=== PATIENT | female | born 2000 | race Caucasian/White ===

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

== ENCOUNTER 2022-09-23 02:40 | Emergency (ER) | payer BC ==
[~2022-09-23] VITALS: Ht 165.1 cm; Wt 72.9 kg
[2022-09-23 02:41] VITALS: BP 126/70; TEMP 99; O2SAT 100
[2022-09-23 03:09] LABS: APPEARANCE, URINE HAZY (CLEAR); BACTERIA, URINE AUTO 1+ (NEGATIVE); BILIRUBIN, URINE AUTO NEGATIVE (NEGATIVE); BLOOD, URINE BLOOD 3+ (NEGATIVE); COLOR, URINE AMBER (YELLOW); GLUCOSE, URINE (UA) AUTO NEGATIVE (NEGATIVE); KETONE, URINE AUTO NEGATIVE (NEGATIVE); LEUKOCYTE ESTERASE, URINE AUTO 3+ (NEGATIVE); MUCUS, URINE SMALL (NEGATIVE); NITRITE, URINE AUTO NEGATIVE (NEGATIVE); PROTEIN, URINE AUTO 1+ mg/dL (NEGATIVE); RBC, URINE AUTO 161 /HPF (0-3); SPECIFIC GRAVITY URINE AUTO 1.011 (1.002-1.035); SQUAMOUS EPITHELIAL CELL UR AU 0 /HPF (0-6); UROBILINOGEN, URINE AUTO 0.2 mg/dL (0.0-2.0); WBC, URINE AUTO 165 /HPF (0-3)
[2022-09-23] MEDS ORDERED: CEFUROXIME 500 MG TAB PO STA (05:37)
[2022-09-23] MEDS ORDERED: CEFP200T PO (05:40)
[2022-09-23 07:17] LABS: GC DNA AMPLIFICATION NEGATIVE (NEGATIVE)
== END 2022-09-23 06:07 | disposition home or self-care (01) ==
LOC: M ED 02:40
DX: N11.1 Chronic obstructive pyelonephritis (principal); Z79.2 Long term (current) use of antibiotics